=== PATIENT | female | born 2005 | race Caucasian/White ===

== ENCOUNTER 2025-08-20 08:35 | Emergency (ER) | payer OTHER ==
[~2025-08-20] VITALS: Ht 160 cm; Wt 75.0 kg
[2025-08-20 09:29] VITALS: TEMP 98.2
[2025-08-20 09:50] LABS: COVID AG,FIA SOURCE NASAL SWAB
[2025-08-20 10:16] LABS: SARS-COV2 (COVID) ANTIGEN,FIA Negative (Negative)
[2025-08-20 10:18] LABS: INFLUENZA TYPE A NEGATIVE FOR TYPE A (NEGATIVE); INFLUENZA TYPE B NEGATIVE FOR TYPE B (NEGATIVE)
[2025-08-20] MEDS: DIPHENOXYLATE/ATROP 2.5-0.025 MG TABLET PO ONE (11:22)
[2025-08-20] MEDS: ONDANSETRON 4 MG TABLET PO ONE (11:22)
[2025-08-20] MEDS: ACETAMINOPHEN 500 MG TABLET PO ONE (11:22)
[2025-08-20 11:28] LABS: PLATELET COUNT (AUTO) 273 K/uL (150-450); RED BLOOD CELL COUNT(AUTO) 4.72 MIL/uL (4.00-5.20); RED CELL DISTRIBUTION WIDTH 13.0 % (11.5-14.5); WHITE BLOOD COUNT (AUTO) 8.2 K/uL (4.5-11.0)
[2025-08-20 11:34] LABS: CALCIUM, TOTAL 8.9 mg/dL (8.8-10.5); CREATININE 0.48 mg/dL (0.60-1.30); GLOMERULAR FILTR. RATE CALC > 60 mL/min (>60); GLUCOSE,RANDOM 88 mg/dL (70-110); SODIUM SERUM 135 mmol/L (136-145); UREA NITROGEN, BLOOD 8 mg/dL (7-18)
[2025-08-20 11:38] VITALS: BP 118/66; PULSE 77; RESP 16; O2SAT 99
[2025-08-20] MEDS ORDERED: DIPH-1130 PO (11:49)
[2025-08-20] MEDS ORDERED: OMEP-148 PO (11:49)
[2025-08-20] MEDS ORDERED: ONDA-104 PO (11:49)
[2025-08-20] MEDS ORDERED: ACET-66 PO (11:49)
[2025-08-20] MEDS ORDERED: SULF1TAB94 PO (11:49)
== END 2025-08-20 12:54 | disposition home or self-care (01) ==
LOC: EMS 08:40
DX: K52.9 Noninfective gastroenteritis and colitis, unspecified (principal); Z20.822 Contact with and (suspected) exposure to COVID-19
CPT/HCPCS: 99284; 87426; 80048; 84703; 85025; 87804; 36415; Q0162